=== PATIENT | male | born 1955 | race African-American/Black ===

== ENCOUNTER 2017-01-07 10:21 | Outpatient (CLI) | payer BC ==
[2017-01-07 13:05] LABS: Cardiac Risk 6.1 (Less than 4.5)
== END 2017-01-07 10:22 | disposition home or self-care (01) ==
LOC: EDBD 10:21 → NAVSJIPCSP 10:21
PROVIDERS: ATTEND Internal Medicine
DX: E78.5 Hyperlipidemia, unspecified (principal)
CPT/HCPCS: 36415; 80061